=== PATIENT | female | born 1995 | race Caucasian/White ===

== ENCOUNTER → 2021-11-04 | Day surgery (SDC) | payer OTHER ==
[~2021-11-04] VITALS: Ht 157.5 cm; Wt 49.0 kg
[~2021-11-04] MED LIST: SYNTHROID100 MCG PO
[2021-11-04 08:35] LABS: HCG (URINE) SCREEN NEGATIVE (NEGATIVE)
[2021-11-04 08:51] LABS: BASOPHIL 1.1 % (0-2); EOSINOPHIL 1.8 % (0-5); HCT 40.2 % (37.0-47.0); HGB 13.5 g/dl (12.5-16.0); LYMPHOCYTE 27.8 % (15-48); MCH 30.2 pg (25.0-31.0); MCHC 33.6 g/dL (32.0-36.0); MCV 89.9 fL (78.0-100.0); MONOCYTE 5.2 % (0-12); MPV 9.1 fL (6.0-9.5); NRBC 0; PLT 254 K/uL (150-400); RBC 4.47 M/uL (4.20-5.40); RDW 12.6 % (11.5-14.0); WBC 7.9 K/uL (4.0-10.5)
[2021-11-04 09:05] LABS: INR 1.07 (0.9-1.2); PROTHROMBIN TIME 13.3 SECONDS (11.8-13.4); PTT 28.2 SECONDS (24.4-34.7)
== END | disposition home or self-care (01) ==
LOC: FAS 08:07
PROVIDERS: Oral & Maxillofacial Surgery
DX: K04.7 Periapical abscess without sinus (principal); K01.1 Impacted teeth; K02.9 Dental caries, unspecified; D68.0 Von Willebrand disease; E03.9 Hypothyroidism, unspecified; F17.210 Nicotine dependence, cigarettes, uncomplicated; Z79.899 Other long term (current) drug therapy
CPT/HCPCS: D7230 ×6; 36415; 84703; 85025; 85610; 85730; J1100; J2250; J2405; J2597; J2704; J2710; J3010; J7120